=== PATIENT | male | born 1980 | race African-American/Black ===

== ENCOUNTER 2016-06-14 01:56 | Emergency (ER) | payer SELFPAY ==
[~2016-06-14] VITALS: Ht 185.4 cm; Wt 68.0 kg
[2016-06-14 02:02] VITALS: BP 120/67
[2016-06-14 02:47] LABS: POTASSIUM ISTAT 3.7 mmol/L (3.5-5.0)
[2016-06-14 03:16] LABS: BARBITURATES NEG (NEG); BENZODIAZEPINES NEG (NEG); CANNABINOIDS POS (NEG); COCAINE NEG (NEG); METHADONE NEG (NEG); OPIATES NEG (NEG); PHENCYCLIDINE NEG (NEG)
[2016-06-14 03:28] LABS: ETHANOL, URINE NEG (NEG)
--- NOTE | 2016-06-14 03:28 | ED.ADGEN ---
Past Medical History Past Medical History: No Pertinent History Past Surgical History: Other Additional Past Surgical Histo: STATES PIN IN R ARM Alcohol Use: None Drug Use: Marijuana Adult General Chief Complaint Chief Complaint: TREMORS HPI HPI Patient is a 36 year old man, with no significant past no history, presents emergency department with complaint of "tremors", which developed shortly after he was arrested. Patient arrives to the emergency department in the company of the [place] [employer], patient states that when he was sitting in the backseat of the please vehicle he began feeling as though he was in a and close his, and began experiencing shaking. No loss of consciousness, no injuries , no chest pain, shortness of breath, nausea, vomiting, no weakness numbness or tingling. Patient with us and saturation of 99% on room air, heart rate of 60, sinus rhythm on monitor, respiratory rate is 18 and unlabored. Patient is able to cease tremors during her conversation. Patient admits to smoking marijuana just before being arrested. Denies any other ingestions. Review of Systems Review of Systems Constitutional: Denies fever or chills. [] Eyes: Denies change in visual acuity. [] HENT: Denies nasal congestion or sore throat. [] Respiratory: Denies cough or shortness of breath. [] Cardiovascular: Denies chest pain or edema. [] GI: Denies abdominal pain, nausea, vomiting, bloody stools or diarrhea. [] : Denies dysuria. [] Musculoskeletal: Denies back pain or joint pain. [] Integument: Denies rash. [] Neurologic: Denies headache, focal weakness or sensory changes. [Tremors.] Endocrine: Denies polyuria or polydipsia. [] Lymphatic: Denies swollen glands. [] Psychiatric: Denies depression or anxiety. [] Allergies Allergies Allergies Coded Allergies Type Severity Reaction Last Updated Verified No Known Drug Allergies 06/14/16 No Physical Exam Physical Exam Constitutional: Well developed, well nourished, no acute distress, non-toxic appearance. [] HENT: Normocephalic, atraumatic, bilateral external ears normal, oropharynx moist, no oral exudates, nose normal. [] Eyes: PERRLA, EOMI, conjunctiva normal, no discharge. [] Neck: Normal range of motion, no tenderness, supple, no stridor. [] Cardiovascular:Heart rate regular rhythm, no murmur, S1, S2, rubs or gallops. [] Lungs & Thorax: Bilateral breath sounds clear to auscultation, no wheezing, rhonchi, rales. [] Abdomen: Bowel sounds normal, soft, no tenderness, no masses, no pulsatile masses. [] Skin: Warm, dry, no erythema, no rash. [] Back: No tenderness, no CVA tenderness. [] Extremities: No tenderness, no cyanosis, no clubbing, ROM intact, no edema. Negative Coral sign. [] Neurologic: Alert and oriented X 3, normal motor function, normal sensory function, no focal deficits noted. [] Psychologic: Affect normal, judgement normal, mood normal. [] Current Patient Data Vital Signs Vital Signs Date Time Temp Pulse Resp B/P Pulse Ox O2 Delivery O2 Flow Rate FiO2 06/14/16 02:02 97.8 77 20 120/67 100 Room Air 97.8 Lab Values Laboratory Tests Test 06/14/16 02:43 06/14/16 02:45 POC Hemoglobin 13.9g/dL (14-18) L POC Hematocrit 41% (37-52) POC Sodium 141mmol/L (135-145) POC Potassium 3.7mmol/L (3.5-5.0) POC Chloride 104mmol/L (98-110) POC Total CO2 22mmol/L (23-32) L Anion Gap 20mmol/L (6-14) H POC Blood Urea Nitrogen 18mg/dL (8-26) POC Creatinine 1.0mg/dL (0.5-1.4) Glucose Level 99mg/dL (70-99) POC Ionized Calcium (Hitesh) 1.10mmol/L (1.13-1.32) L Urine Opiates Screen Neg (NEG) Urine Methadone Screen Neg (NEG) Urine Barbiturates Neg (NEG) Urine Phencyclidine Screen Neg (NEG) Urine Amphetamine/Methamphetamine Neg (NEG) Urine Benzodiazepines Screen Neg (NEG) Urine Cocaine Screen Neg (NEG) Urine Cannabinoids Screen Pos (NEG) Urine Ethyl Alcohol Neg (NEG) Laboratory Tests 06/14/16 02:43 EKG EKG ECG: Rhythm strip: Sinus rhythm, heart rate 75 bpm, no ectopy. As interpreted by me. Radiology/Procedures Radiology/Procedures Not indicated. [] Course & Med Decision Making Course & Med Decision Making Pertinent Labs and Imaging studies reviewed. (See chart for details) Patient's tremors appear to be fully voluntary. Discussed with patient, i-STAT was obtained, UDS. UDS is positive for marijuana, i-STAT reveals no evidence of acutely concerning findings. I did discuss this with patient, and he was discharged with the officers of the [facility] [employer] with medical clearance. Dragon Disclaimer Dragon Disclaimer This electronic medical record was generated, in whole or in part, using a voice recognition dictation system. Departure Impression: Primary Impression: Encounter for medical screening examination Disposition: HOME, SELF-CARE Condition: STABLE BALTAZAR MIRANDA DO Jun 14, 2016 03:28
== END 2016-06-14 03:38 | disposition home or self-care (01) ==
LOC: ER 01:56
DX: F12.10 Cannabis abuse, uncomplicated (principal); Z13.89 Encounter for screening for other disorder
CPT/HCPCS: 80047; 80305; 99283; G0481